=== PATIENT | male | born 1980 | race Caucasian/White ===

== ENCOUNTER 2020-06-07 17:20 | Emergency (ER) | payer OTHER ==
[2020-06-07] MEDS ORDERED: Sodium Chloride 0.9% 2.5 ML Syringe FLUSH PRN (17:22)
[2020-06-07] MEDS ORDERED: Lactated Ringers 1,000 ML IV ONE (17:22)
[2020-06-07] MEDS ORDERED: Sodium Chloride 0.9% 10 ML Syringe FLUSH PRN (17:22)
[2020-06-07] MEDS ORDERED: Ondansetron 4 MG/2 ML SDV IVPUSH ONE (17:22)
[2020-06-07] MEDS ORDERED: fentaNYL 50 MCG/ML SDV IVPUSH ONE (17:25)
[2020-06-07] MEDS ORDERED: Diphtheria,Pertussis(Acell),Tetanus Vaccine 0.5 ML Syringe IM ONE (17:26)
[2020-06-07] MEDS ORDERED: Bacitracin Oint 1 GM U/D Packet TOP ONE (17:31)
--- NOTE | 2020-06-07 17:31 | EDM.PDOC ---
ED HPI GENERAL MEDICAL PROBLEM Body Pain Score (Numeric/FACES): 8 <Lee Romero - Last Filed: 06/07/20 18:55> <Ravindra Jean Baptiste - Last Filed: 06/08/20 10:07> - General Chief Complaint: Trauma Stated Complaint: TRAUMA ALERT Time Seen by Provider: 06/07/20 17:20 - History of Present Illness INITIAL COMMENTS - FREE TEXT/NARRATIVE: History of present illness: Patient presents by private vehicle about 30 minutes after falling approximately 20 feet out of a tree stand where he was doing some [employer] work on a tree. He remembers the fall when he landed he hit his head and was knocked unconscious. He is complaining of facial pain where his lip is lacerated he is complaining of chest wall pain in the right side is complaining of right wrist and right ankle pain where he landed on his feet and then fell onto his right hand. His family reports that he was altered after awakening patient denies any medical problems takes no medications he is allergic to sulfa he denies having an up-to-date tetanus at this time Review of systems: As per history of present illness and below otherwise all systems reviewed and negative. Past medical history: As per history of present illness and as reviewed below otherwise noncontributory. Surgical history: As per history of present illness and as reviewed below otherwise noncontributory. Social history: No reported history of drug or alcohol abuse. Family history: As per history of present illness and as reviewed below otherwise noncontributory. Physical exam: HEENT: Atraumatic, normocephalic, pupils reactive, negative for conjunctival pallor or scleral icterus, mucous membranes moist, throat clear, neck supple, nontender, trachea midline. There is a laceration and abrasion to the face about the mouth on the right side upper and lower lips. With some ecchymosis and swelling. Lungs: Clear to auscultation, breath sounds equal bilaterally, chest is tender over the mid anterior right-sided chest with a contusion and abrasion. No crepitance. Heart: S1S2, regular, negative for clicks, rubs, or JVD. Abdomen: Soft, nondistended, nontender. Negative for masses or hepatosplenomegaly. Negative for costovertebral tenderness. Pelvis: Stable nontender. Genitourinary: Deferred. Rectal: Deferred. Extremities: Atraumatic, negative for cords or calf pain. Neurovascular unremarkable. Tenderness and swelling in the right wrist there is some tenderness to the right ankle without any gross swelling or ecchymosis. There is good distal pulse motor and sensation in all 4 extremities Neuro: Awake, alert, oriented. Cranial nerves II through XII unremarkable. Cerebellum unremarkable. Motor and sensory unremarkable throughout. Exam nonfocal. Back: No evidence of injury no tenderness along the spinal column from C6 to the coccyx. Diagnostics: [] Therapeutics: [] Impression: Fall from a height of approximately 20 feet with head injury facial laceration chest wall contusion and injuries to the right upper and lower extremities. [] Plan: Patient will undergo CT scanning labs pain medication nausea medication fluid bolus will be given the patient will be reassessed. Tetanus will be updated [] Definitive disposition and diagnosis as appropriate pending reevaluation and review of above. (Lee Romero) - Related Data Allergies Allergy/AdvReac Type Severity Reaction Status Date / Time Sulfa (Sulfonamide Allergy Cannot Verified 06/07/20 17:25 Antibiotics) Remember Home Meds: Home Meds Cyclobenzaprine [Flexeril] 10 mg PO TID #30 tab 06/07/20 [Rx] Naproxen [Naprosyn] 500 mg PO Q12HR #20 tab 06/07/20 [Rx] Review of Systems - Review of Systems Review Of Systems: See Below <Lee Romero - Last Filed: 06/07/20 18:55> ED EXAM, GENERAL - Physical Exam Exam: See Below <Lee Romero - Last Filed: 06/07/20 18:55> ED TRAUMA PROCEDURES - Laceration/Wound Repair Lower Lip Lac/Wound Length In cm: 2 Appearance: Subcutaneous, Linear, Clean Distal NVT: Neuro & Vascular Intact Anesthetic Type: Local Local Anesthesia - Lidocaine (Xylocaine): 1% Plain Skin Prep: Chlorhexidine (Hibiciens), Saline, Sterile Drape Saline Irrigation (cc's): 250 Exploration/Debridement/Repair: Wound Explored, In a Bloodless Field, Explored to Base, No Foreign Material Found Closed With: Sutures Suture Size: 4-0 (Chromic) Suture Type: Interrupted, Simple Drain Placement: No Sterile Dressing Applied: Provider Tetanus Status Addressed: Yes Complications: No <Ravindra Jean Baptiste - Last Filed: 06/08/20 10:07> Course <Lee Romero - Last Filed: 06/07/20 18:55> - Vital Signs Text/Narrative:: 3 view right ankle read interpreted by me no acute fractures dislocations are apparent 3 view right wrist read interpreted by me there is an old fifth metacarpal fracture but no current acute fractures in the hand or wrist as visualized on these 3 images. Patient is refusing pain medicine at this time he was offered some fentanyl and Tylenol. Patient CT of the head and neck are read as negative by radiology no acute fractures or bleeds. CT of the chest abdomen pelvis likewise read by radiology no acute injury. Patient has a facial laceration is through and through in the lower lip will be irrigated and cleaned out the PA is going to close it for me. Will be discharged home with naproxen and Flexeril follow-up with primary care and orthopedics (Lee Romero) Last Recorded V/S: Last Vital Signs Temp 97.6 F 06/07/20 17:20 Pulse 77 06/07/20 17:20 Resp 18 06/07/20 17:20 BP 123/67 06/07/20 17:20 Pulse Ox 98 06/07/20 17:20 - Orders/Labs/Meds Orders: Active Orders 24 hr Category Date Time Status Vaccines to be Administered [RC] PER UNIT ROUTINE Care 06/07/20 17:26 Active Sodium Chloride 0.9% [Saline Flush] Med 06/07/20 17:22 Active 10 ml FLUSH ASDIRECTED PRN Sodium Chloride 0.9% [Saline Flush] Med 06/07/20 17:22 Active 2.5 ml FLUSH ASDIRECTED PRN DME for Discharge [COMM] Stat Oth 06/07/20 18:41 Ordered DME for Discharge [COMM] Stat Oth 06/07/20 18:41 Ordered DME for Discharge [COMM] Stat Oth 06/07/20 18:58 Ordered Saline Lock Insert [OM.PC] Stat Oth 06/07/20 17:23 Ordered Medication Orders Sodium Chloride (Saline Flush) 10 ml FLUSH ASDIRECTED PRN PRN Reason: Keep Vein Open Sodium Chloride (Saline Flush) 2.5 ml FLUSH ASDIRECTED PRN PRN Reason: Keep Vein Open Labs: Laboratory Tests 06/07/20 06/07/20 Range/Units 17:26 17:26 WBC 9.26 (4.0-11.0) K/uL RBC 4.71 (4.50-5.90) M/uL Hgb 15.0 (13.0-17.0) g/dL Hct 42.6 (38.0-50.0) % MCV 90.4 (80.0-98.0) fL MCH 31.8 (27.0-32.0) pg MCHC 35.2 (31.0-37.0) g/dL RDW Std Deviation 40.9 (28.0-62.0) fl RDW Coeff of Deirdre 12 (11.0-15.0) % Plt Count 156 (150-400) K/uL MPV 10.40 (7.40-12.00) fL Neut % (Auto) 74.8 (48.0-80.0) % Lymph % (Auto) 15.9 L (16.0-40.0) % Obion % (Auto) 7.5 (0.0-15.0) % Eos % (Auto) 1.6 (0.0-7.0) % Baso % (Auto) 0.2 (0.0-1.5) % Neut # (Auto) 6.9 H (1.4-5.7) K/uL Lymph # (Auto) 1.5 (0.6-2.4) K/uL Obion # (Auto) 0.7 (0.0-0.8) K/uL Eos # (Auto) 0.2 (0.0-0.7) K/uL Baso # (Auto) 0.0 (0.0-0.1) K/uL Nucleated RBC % 0.0 /100WBC Nucleated RBCs # 0 K/uL Sodium 140 (136-148) mmol/L Potassium 3.7 (3.5-5.1) mmol/L Chloride 103 (98-107) mmol/L Carbon Dioxide 24.9 (21.0-32.0) mmol/L BUN 19 H (7.0-18.0) mg/dL Creatinine 1.1 (0.8-1.3) mg/dL Est Cr Clr Drug Dosing 99.94 mL/min Estimated GFR (MDRD) > 60.0 ml/min Glucose 101 (74-106) mg/dL Calcium 9.2 (8.5-10.1) mg/dL Total Bilirubin 0.6 (0.2-1.0) mg/dL AST 31 (15-37) IU/L ALT 28 (14-63) IU/L Alkaline Phosphatase 58 (46-116) U/L Total Protein 8.0 (6.4-8.2) g/dL Albumin 4.1 (3.4-5.0) g/dL Globulin 3.9 (2.6-4.0) g/dL Albumin/Globulin Ratio 1.1 (0.9-1.6) Meds: Medications Generic Name Dose Route Start Last Admin Trade Name Freq PRN Reason Stop Dose Admin Sodium Chloride 10 ml 06/07/20 17:22 Saline Flush FLUSH ASDIRECTED PRN Keep Vein Open Sodium Chloride 2.5 ml 06/07/20 17:22 Saline Flush FLUSH ASDIRECTED PRN Keep Vein Open Discontinued Medications Generic Name Dose Route Start Last Admin Trade Name Freq PRN Reason Stop Dose Admin Acetaminophen Confirm 06/07/20 18:16 06/07/20 18:57 Tylenol Extra Strength Administered 06/07/20 18:17 1,000 mg Dose Administration 1,000 mg .ROUTE .STK-MED ONE Bacitracin 1 dose 06/07/20 17:31 06/07/20 19:00 Bacitracin Oint 1 Gm TOP 06/07/20 17:32 1 dose ONETIME ONE Administration Diphtheria/Tetanus/Acell Pertussis 0.5 ml 06/07/20 17:26 06/07/20 18:58 Adacel IM 06/07/20 17:27 0.5 ml .ONCE ONE Administration Fentanyl 50 mcg 06/07/20 17:25 06/07/20 18:27 Fentanyl IVPUSH 06/07/20 17:26 Not Given ONETIME ONE Lactated Ringer's 1,000 mls @ 999 mls/hr 06/07/20 17:22 06/07/20 18:57 Ringers, Lactated IV 06/07/20 18:22 999 mls/hr .BOLUS ONE Administration Lidocaine HCl Confirm 06/07/20 18:51 06/07/20 18:59 Xylocaine-Mpf 1% Administered 06/07/20 18:52 2 mls/hr Dose Administration 2 mls @ as directed .ROUTE .STK-MED ONE Iopamidol 100 ml 06/07/20 17:57 06/07/20 17:57 Isovue Multipack-370 (76%) IVPUSH 06/07/20 17:58 100 ml ONETIME ONE Administration Lidocaine/Epinephrine 10 ml 06/07/20 18:49 06/07/20 18:59 Xylocaine 1% With Epinephrine 1:100,000 INJECT 06/07/20 18:50 Not Given ONETIME ONE Ondansetron HCl 4 mg 06/07/20 17:22 06/07/20 18:27 Zofran IVPUSH 06/07/20 17:23 Not Given ONETIME ONE Departure - Departure Time of Disposition: 18:57 Condition: Good - Discharge Information *PRESCRIPTION DRUG MONITORING PROGRAM REVIEWED*: Not Applicable *COPY OF PRESCRIPTION DRUG MONITORING REPORT IN PATIENT CHIQUI: Not Applicable <Lee Romero D - Last Filed: 06/07/20 18:55> <Ravindra Jean Baptiste - Last Filed: 06/08/20 10:07> - Departure Disposition: Home, Self-Care 01 Clinical Impression: Concussion with brief (less than one hour) loss of consciousness, Facial laceration, Right wrist sprain, Right ankle sprain, Chest wall contusion - Discharge Information Prescriptions: Cyclobenzaprine [Flexeril] 10 mg PO TID #30 tab Naproxen [Naprosyn] 500 mg PO Q12HR #20 tab Instructions: Ankle Sprain, [id number], Laceration Care, Adult, Head Injury, Adult, [id number] Referrals: Louis Heart MD [Primary Care Provider] - Forms: ED Department Discharge Additional Instructions: The following information is given to patients seen in the emergency department who are being discharged to home. This information is to outline your options for follow-up care. We provide all patients seen in our emergency department with a follow-up referral. The need for follow-up, as well as the timing and circumstances, are variable depending upon the specifics of your emergency department visit. If you don't have a primary care physician on staff, we will provide you with a referral. We always advise you to contact your personal physician following an emergency department visit to inform them of the circumstance of the visit and for follow-up with them and/or the need for any referrals to a consulting specialist. The emergency department will also refer you to a specialist when appropriate. This referral assures that you have the opportunity for follow-up care with a s pecialist. All of these measure are taken in an effort to provide you with optimal care, which includes your follow-up. Under all circumstances we always encourage you to contact your private physici an who remains a resource for coordinating your care. When calling for follow-up care, please make the office aware that this follow-up is from your recent emergency room visit. If for any reason you are refused follow-up, please contact the [facility] Emergency Department at and asked to speak to the emergency department charge nurse. [facility] [address] [place] [id number] [address] [address] [facility] Professional Building [address] [facility] [place], [address] [place] [address]
[2020-06-07] MEDS ORDERED: Iopamidol 755 MG/ML 200 ML Multipack Bottle IVPUSH ONE (17:57)
[2020-06-07 18:10] LABS: BLOOD UREA NITROGEN,BUN 19 mg/dL (7.0-18.0); CARBON DIOXIDE,CO2 24.9 mmol/L (21.0-32.0); CHLORIDE,CL 103 mmol/L (98-107); GLUCOSE RANDOM 101 mg/dL (74-106); POTASSIUM,K 3.7 mmol/L (3.5-5.1); SODIUM,NA 140 mmol/L (136-148)
[2020-06-07] MEDS ORDERED: Acetaminophen 500 MG Tab ONE (18:16)
--- NOTE | 2020-06-07 18:17 | CR ---
Right ankle: 3 views of the right ankle were obtained. Comparison: No previous ankle study. Minimal plantar spur is noted. Ankle mortise is symmetric. No acute fracture, dislocation or other bony abnormality is appreciated. Impression: 1. Nothing acute is seen on right ankle exam. Diagnostic code #2 This report was dictated in MDT
--- NOTE | 2020-06-07 18:20 | CT ---
INDICATION: Trauma, fall from tree 20 ft. Pt could not lift arms above head for scan due to pain. CT HEAD WITHOUT CONTRAST TECHNIQUE: Multiple axial CT images were performed through the head without intravenous contrast administration. COMPARISON: No previous studies are currently available for comparison. FINDINGS: No acute intracranial hemorrhage is identified. No extra-axial collections are evident and there is no mass effect or midline shift. Ventricles are normal in size and configuration. Brain parenchyma appears normal with unremarkable wynn-white differentiation. There is soft tissue swelling along the right side of the nose with a minimally medially displaced right-sided nasal fracture. Soft tissue density is present within several ethmoid air cells, and within the sphenoid sinus and right maxillary sinus, with a configuration suggesting mucosal thickening and favored due to sinusitis although hemorrhage from additional facial fracture is not entirely excluded. If desired, facial CT could be performed for further evaluation. IMPRESSION: 1. No intracranial abnormality identified. 2. Soft tissue swelling over the right side of the nose with minimally displaced right-sided nasal fracture. 3. Paranasal sinus soft tissue density as noted above, favored to reflect sinusitis. JAYDON MARIANO MD [employer] Dictated by Johnathan Mariano MD @ 06/07/2020 6:18:44 PM Dictated by: Johnathan Mariano MD @ 06/07/2020 18:19:01 (Electronically Signed)
--- NOTE | 2020-06-07 18:28 | CT ---
INDICATION: Trauma, fall from tree 20 ft. Pt could not lift arms above head for scan due to pain. CT CERVICAL SPINE WITHOUT CONTRAST TECHNIQUE: Multidetector axial CT imaging was performed through the cervical spine, without contrast. Sagittal and coronal reconstructions were generated. FINDINGS: No acute fractures are identified. Osseous alignment is unremarkable and no subluxation is seen. Prevertebral soft tissues appear normal. Included portions of the airway and lung apices are within normal limits. IMPRESSION: No fracture, subluxation, or other acute finding identified in the cervical spine. JAYDON MARIANO MD [employer] Dictated by: Johnathan Mariano MD @ 06/07/2020 18:27:52 (Electronically Signed)
--- NOTE | 2020-06-07 18:41 | CT ---
INDICATION: Trauma, fall from tree 20 ft. Pt could not lift arms above head for scan due to pain. INDICATION: Trauma, fall from tree 20 ft. Pt could not lift arms above head for scan due to pain. CT CHEST, ABDOMEN, AND PELVIS WITH CONTRAST TECHNIQUE: Multidetector axial CT imaging was performed through the chest, abdomen, and pelvis following intravenous contrast administration using 100mL Isovue 370. Coronal and sagittal reconstructions were generated. COMPARISON: None. FINDINGS: The lungs are clear aside from mild dependent atelectasis. No pleural effusions or pneumothorax. The aorta is normal in caliber and shows no evidence of acute injury. No mediastinal masses or lymphadenopathy. The heart appears within normal limits. No significant pericardial effusion. Thoracic osseous structures show no fractures or other significant findings. The liver, spleen, gallbladder, pancreas, stomach, adrenals, and kidneys show no significant abnormalities. Bowel loops are of normal caliber and demonstrate no wall thickening. The appendix is normal. No free fluid or free air is identified. No abnormally enlarged lymph nodes are seen in the abdomen or pelvis. The urinary bladder, prostate, and seminal vesicles are within normal limits. The lower spine and bony pelvis show no fractures or other significant findings. IMPRESSION: No acute abnormality identified. JAYDON MARIANO MD [employer] Dictated by: Johnathan Mariano MD @ 06/07/2020 18:40:31 (Electronically Signed)
--- NOTE | 2020-06-07 18:45 | CR ---
Indication: Fall. Technique: Three views of the right wrist. Comparison: None Findings: No acute fracture subluxation is identified. The joint spaces are well maintained. Impression: No acute fracture. Dictated by Alaina Cifuentes MD @ Jun 07 2020 6:42PM Signed by Dr. Alaina Cifuentes @ Jun 07 2020 6:44PM
[2020-06-07] MEDS ORDERED: Lidocaine 1% with EPINEPHrine 1:100,000 10 ML MDV INJECT ONE (18:49)
[2020-06-07] MEDS ORDERED: Lidocaine 1% 2 ML ONE (18:51)
== END 2020-06-07 19:50 | disposition home or self-care (01) ==
LOC: MW.ED 17:20
DX: S06.0X9A Concussion with loss of consciousness of unspecified duration, initial encounter (principal); S01.511A Laceration without foreign body of lip, initial encounter; S93.401A Sprain of unspecified ligament of right ankle, initial encounter; S63.501A Unspecified sprain of right wrist, initial encounter; S20.211A Contusion of right front wall of thorax, initial encounter; S69.92XA Unspecified injury of left wrist, hand and finger(s), initial encounter; S89.92XA Unspecified injury of left lower leg, initial encounter; Z88.2 Allergy status to sulfonamides; W14.XXXA Fall from tree, initial encounter; Z23 Encounter for immunization
CPT/HCPCS: 12011; 36415; 70450; 71260; 72125; 73110; 73610; 74177; 80053; 85025; 90471; 90715; 99284; A9270; J2001; J7120; Q9967; 29515; 99285

== ENCOUNTER 2020-07-12 11:12 | Emergency (ER) | payer OTHER ==
[2020-07-12] MEDS ORDERED: Bacitracin Oint 1 GM U/D Packet TOP ONE (11:25)
[2020-07-12] MEDS ORDERED: Lidocaine 1% with EPINEPHrine 1:100,000 10 ML MDV INJECT ONE (11:25)
--- NOTE | 2020-07-12 11:32 | EDM.PDOC ---
ED HPI GENERAL MEDICAL PROBLEM - General Chief Complaint: Laceration Stated Complaint: left leg needs stitches Time Seen by Provider: 07/12/20 11:14 Source of Information: Reports: Patient History Limitations: Reports: No Limitations - History of Present Illness INITIAL COMMENTS - FREE TEXT/NARRATIVE: HISTORY AND PHYSICAL: History of present illness: Patient is a 39-year-old male who presents to the emergency room with complaints of laceration to his left medial mid thigh. He states he was skinning a deer when his knife slipped resulting in the laceration. He initially attempted to glue and butterfly tape it closed but bleeding would not stop. He offers no other bodily injury and has no systemic complaints. Tetanus was updated in 2019. Review of systems: As per history of present illness and below otherwise all systems reviewed and negative. Past medical history: As per history of present illness and as reviewed below otherwise noncontributory. Surgical history: As per history of present illness and as reviewed below otherwise noncontributory. Social history: See social history for further information Family history: As per history of present illness and as reviewed below otherwise noncontributory. Physical exam: General: Well developed and well nourished. Alert and orientated x 3. Nontoxic in appearance and in no acute distress. Vital signs are stable and have been reviewed by me. Nursing notes were reviewed. HEENT: Atraumatic, normocephalic, pupils equal and reactive bilaterally, negative for conjunctival pallor or scleral icterus, mucous membranes moist, trachea midline. No drooling or trismus noted. No meningeal signs. No hot potato voice noted. Lungs: Clear to auscultation, breath sounds equal bilaterally. Normal work of breathing, no accessory muscles used. Heart: S1S2, regular rate and rhythm without overt murmur Abdomen: Soft, nondistended, nontender. Skin: 2 cm laceration to the mid medial right thigh, no current bleeding. Early bruising noted to the distal aspect of the laceration. Otherwise remaining skin is intact, warm, dry. No lesions or rashes noted. Hematologic: No petechiae or purpra. Mucosa appropriate color and normal nail bed color and refill. Extremities: See SKIN for details. Moves all extremities per self without difficulty or deficits, negative for cords or calf pain. Neurovascular unremarkable. Neuro: Awake, alert, oriented. Cranial nerves II through XII unremarkable. Cerebellum unremarkable. Motor and sensory unremarkable throughout. Exam nonfocal. Psychiatric: Mood and affect are appropriate. Normal thought process. Answering questions appropriately. Notes: 1% lidocaine was used to anesthetize the area. Laceration was thoroughly cleansed with wound wash and chlorhexidine. 4-0 nylon, #3 interrupted sutures were placed. Bacitracin nonstick dressing was applied. Patient tolerated well. The patient is stable for discharge, counseling was provided and we discussed in great detail signs and symptoms that would prompt them to return to the Emergency Department. Medication, follow up and supportive care measures were reviewed and discussed. Voices understanding and is agreeable to plan of care. Denies any further questions or concerns at this time. Diagnostics: None Therapeutics: Lidocaine, Bacitracin Prescription: None Impression: Laceration Plan: 1. Keep the area clean and dry. Continue to monitor for signs of infection. Sutures to be removed in 7-10 days. 2. Tylenol and/or ibuprofen as needed for pain management. 3. Please follow-up with your primary care provider in the next 1-2 days. Return to the ED as needed and as discussed. Definitive disposition and diagnosis as appropriate pending reevaluation and review of above. - Related Data Allergies Allergy/AdvReac Type Severity Reaction Status Date / Time Sulfa (Sulfonamide Allergy Cannot Verified 07/12/20 11:23 Antibiotics) Remember Home Meds: Home Meds . [No Known Home Meds] 07/12/20 [History] Past Medical History - Past Health History Medical/Surgical History: Denies Medical/Surgical History - Infectious Disease History Infectious Disease History: Reports: Chicken Pox Social & Family History - Family History Family Medical History: Noncontributory - Tobacco Use Smoking Status *Q: Never Smoker - Caffeine Use Caffeine Use: Reports: Coffee - Alcohol Use Days Per Week of Alcohol Use: 7 Number of Drinks Per Day: 2 Total Drinks Per Week: 14 - Recreational Drug Use Recreational Drug Use: No ED ROS GENERAL - Review of Systems Review Of Systems: Comprehensive ROS is negative, except as noted in HPI. ED EXAM, SKIN/RASH Exam: See Below (See dictation) ED SKIN PROCEDURES - Laceration/Wound Repair Left thigh Appearance: Subcutaneous, Linear Distal NVT: Neuro & Vascular Intact, No Tendon Injury Anesthetic Type: Local Local Anesthesia - Lidocaine (Xylocaine): 1% Plain Local Anesthetic Volume: 2cc Skin Prep: Chlorhexidine (Hibiciens), Saline, Sterile Drape Saline Irrigation (cc's): 500 Exploration/Debridement/Repair: Wound Explored, In a Bloodless Field, Explored to Base, No Foreign Material Found Closed with: Sutures Lac/Wound length In cm: 2 Suture Size: 4-0 # of Sutures: 3 Suture Type: Nylon, Interrupted, Simple Drain Placement: No Sterile Dressing Applied: Provider Tetanus Status Addressed: Yes Complications: No Course - Vital Signs Last Recorded V/S: Last Vital Signs Temp 96.4 F L 07/12/20 11:20 Pulse 84 07/12/20 11:20 Resp 16 07/12/20 11:20 BP 131/70 07/12/20 11:20 Pulse Ox 97 07/12/20 11:20 - Orders/Labs/Meds Meds: Medications Discontinued Medications Generic Name Dose Route Start Last Admin Trade Name Freq PRN Reason Stop Dose Admin Bacitracin 1 dose 07/12/20 11:25 Bacitracin Oint 1 Gm TOP 07/12/20 11:26 ONETIME ONE Lidocaine HCl Confirm 07/12/20 11:35 Xylocaine-Mpf 1% Administered 07/12/20 11:36 Dose 2 mls @ as directed .ROUTE .STK-MED ONE Lidocaine/Epinephrine 10 ml 07/12/20 11:25 Xylocaine 1% With Epinephrine 1:100,000 INJECT 07/12/20 11:26 ONETIME ONE Departure - Departure Time of Disposition: 11:52 Disposition: Home, Self-Care 01 Clinical Impression: Laceration - Discharge Information Instructions: Laceration Care, Adult, [id number] Referrals: PCP,None [Primary Care Provider] - Forms: ED Department Discharge Additional Instructions: The following information is given to patients seen in the emergency department who are being discharged to home. This information is to outline your options for follow-up care. We provide all patients seen in our emergency department with a follow-up referral. The need for follow-up, as well as the timing and circumstances, are variable depending upon the specifics of your emergency department visit. If you don't have a primary care physician on staff, we will provide you with a referral. We always advise you to contact your personal physician following an emergency department visit to inform them of the circumstance of the visit and for follow-up with them and/or the need for any referrals to a consulting specialist. The emergency department will also refer you to a specialist when appropriate. This referral assures that you have the opportunity for follow-up care with a specialist. All of these measure are taken in an effort to provide you with optimal care, which includes your follow-up. Under all circumstances we always encourage you to contact your private physician who remains a resource for coordinating your care. When calling for follow-up care, please make the office aware that this follow-up is from your recent emergency room visit. If for any reason you are refused follow-up, please contact the [facility] Emergency Department at and asked to speak to the emergency department charge nurse. [facility] [address] [place] [id number] [place] [address] Thank you for choosing the [facility] emergency department in [place] for your medical needs today. It was a pleasure caring for you. Today you were seen in the emergency department for laceration 1. Keep the area clean and dry. Continue to monitor for signs of infection. Sutures to be removed in 7 days. 2. Tylenol and/or ibuprofen as needed for pain management. 3. Please follow-up with your primary care provider in the next 1-2 days. Return to the ED as needed and as discussed. Sepsis Event Note (ED) - Evaluation Sepsis Screening Result: No Definite Risk - Focused Exam Vital Signs: Vital Signs Temp Pulse Resp BP Pulse Ox 07/12/20 11:20 96.4 F L 84 16 131/70 97
[2020-07-12] MEDS ORDERED: Lidocaine 1% 2 ML ONE (11:35)
== END 2020-07-12 12:05 | disposition home or self-care (01) ==
LOC: MW.ED 11:12
DX: S71.112A Laceration without foreign body, left thigh, initial encounter (principal); Z88.2 Allergy status to sulfonamides; W26.0XXA Contact with knife, initial encounter
CPT/HCPCS: 12001; 99282; J2001